=== PATIENT | female | born 1975 | race Caucasian/White ===

== ENCOUNTER 2017-08-03 09:32 | Emergency (ER) | payer SELFPAY ==
[~2017-08-03] VITALS: Ht 165.1 cm; Wt 55.0 kg
[2017-08-03 12:11] VITALS: BP 129/91
== END 2017-08-03 12:33 | disposition home or self-care (01) ==
LOC: ER 09:32
DX: S92.355A Nondisplaced fracture of fifth metatarsal bone, left foot, initial encounter for closed fracture (principal); W01.0XXA Fall on same level from slipping, tripping and stumbling without subsequent striking against object, initial encounter; Y93.89 Activity, other specified; Y92.89 Other specified places as the place of occurrence of the external cause
CPT/HCPCS: 73630; 81025; 99284; Z7610